=== PATIENT | male | born 1990 | race African-American/Black ===

== ENCOUNTER 2022-09-20 21:19 | Emergency (ER) | payer OTHER ==
[~2022-09-20] VITALS: Ht 170.1 cm; Wt 59.0 kg
[2022-09-20] MEDS ORDERED: NAPROXEN250 MG PO (23:07)
[2022-09-20] MEDS ORDERED: METHOCARBAMOL500 M1 PO (23:07)
== END 2022-09-20 23:39 | disposition home or self-care (01) ==
LOC: ED 21:19
DX: S39.012A Strain of muscle, fascia and tendon of lower back, initial encounter (principal); S00.93XA Contusion of unspecified part of head, initial encounter; R10.30 Lower abdominal pain, unspecified; Z88.0 Allergy status to penicillin; V89.2XXA Person injured in unspecified motor-vehicle accident, traffic, initial encounter; Y93.89 Activity, other specified; Y92.410 Unspecified street and highway as the place of occurrence of the external cause; Y99.8 Other external cause status